=== PATIENT | male | born 1935 | race Caucasian/White ===

== ENCOUNTER 2016-12-05 11:29 | Observation (INO) | payer OTHER, MEDICARE ==
[2016-12-05] MEDS ORDERED: DIAZEPAM 5 MG TAB PO ONE (11:34)
[2016-12-05] MEDS ORDERED: FAMOTIDINE 20 MG TAB PO ONE (11:34)
[2016-12-05] MEDS ORDERED: diphenhydrAMINE 25 MG CAP PO ONE (11:34)
[2016-12-05] MEDS ORDERED: NS 1,000 ML IV ONE (11:34)
[2016-12-05] MEDS ORDERED: ASPIRIN EC 325 MG TAB PO ONE (11:34)
--- NOTE | 2016-12-05 11:59 | CPEKG ---
Heart Rate: 44 RR Interval: 1364 P-R Interval: 280 QRSD Interval: 162 QT Interval: 500 QTC Interval: 428 P [place]: -80 QRS [place]: -108 T Wave [place]: -11 EKG Severity - ABNORMAL ECG - EKG Impression: SINUS OR ECTOPIC ATRIAL BRADYCARDIA EKG Impression: FIRST DEGREE AV BLOCK EKG Impression: RIGHT BUNDLE BRANCH BLOCK Electronically Signed By: Niranjan Mccarthy 05-Dec-2016 14:41:03
[2016-12-05] MEDS ORDERED: LIDOCAINE 1% 300 MG/30 ML SDV ONE (12:03)
[2016-12-05] MEDS ORDERED: fentaNYL 100 MCG/2 ML INJ ONE (12:03)
[2016-12-05] MEDS ORDERED: IOPAMIDOL (ISOVUE-370) 150 ML BTL IV ONE (12:04)
[2016-12-05] MEDS ORDERED: MIDAZOLAM 2 MG/2 ML VIAL ONE (12:04)
[2016-12-05 12:11] LABS: % IMMATURE GRANULYOCYTES 0.4 % (0.0-1.1); ABSOLUTE IMMATURE GRANULOCYTES 0.04 10^3/uL (0.00-0.10); ADD DIFF? NO; ADD MORPH? NO; ADD SCAN? NO; ATYPICAL LYMPHOCYTE FLAG 10 (0-99); FRAGMENT RBC FLAG 0 (0-99); HEMATOCRIT 46.2 % (40.0-51.0); HEMOGLOBIN 15.6 g/dL (13.7-17.5); LEFT SHIFT FLG 0 (0-99); LIPEMIA HEMOLYSIS FLAG 90 (0-99); MEAN CELL HEMOGLOBIN CONCENTR. 33.8 g/dL (32.4-36.7); MEAN CELL VOLUME 97.7 fL (81.5-99.8); MEAN PLATELET VOLUME 9.9 fL (8.7-11.7); PLATELET CLUMPS FLAG 10 (0-99); PLATELET COUNT 191 10^3/uL (150-400); RED BLOOD CELL COUNT 4.73 10^6/uL (4.40-6.38); RED CELL DISTRIBUTION WIDTH 13.2 % (11.5-15.2)
[2016-12-05 12:23] LABS: INR 1.02 (0.83-1.16); PROTIME(PATIENT) 13.3 SEC (12.0-15.0)
[2016-12-05 12:41] LABS: ANION GAP 12 mEq/L (8-16); CALCIUM 9.7 mg/dL (8.5-10.4); CARBON DIOXIDE 23 mEq/l (22-31); CHLORIDE 107 mEq/L (97-110); CHOLESTEROL 110 mg/dL (140-220); CHOLESTEROL/HDL RATIO 2.39 RATIO (1.00-4.97); CREATININE 0.8 mg/dL (0.7-1.3); GLOMERULAR FILTRATION RATE > 60; GLUCOSE 134 mg/dL (70-100); HIGH DENSITY LIPOPROTEIN 46 mg/dL (40-65); LDL/HDL RATIO 0.87 RATIO (1.00-3.64); LOW DENSITY LIPOPROTEIN 40 mg/dL (80-100); MAGNESIUM 1.9 mg/dL (1.6-2.3); NON-HIGH DENSITY LIPOPROTEIN 64 mg/dL (90-129); POTASSIUM 4.8 mEq/L (3.5-5.2); SODIUM 142 mEq/L (134-144); TRIGLYCERIDE 121 mg/dL (40-150); VERY LOW DENSITY LIPOPROTEINS 24 mg/dL (8-25)
[2016-12-05] MEDS ORDERED: BIVALIRUDIN 250 MG/5 ML VIAL IV ONE ×2 (14:29)
[2016-12-05] MEDS ORDERED: CLOPIDOGREL BISULFATE 75 MG TAB ONE (14:52)
[2016-12-05] MEDS ORDERED: NITROGLYCERIN 0.4 MG BTL SL PRN (15:09)
[2016-12-05] MEDS ORDERED: TEMAZEPAM 15 MG CAP PO PRN (15:09)
[2016-12-05] MEDS ORDERED: CLOPIDOGREL BISULFATE 75 MG TAB PO ONE (15:09)
[2016-12-05] MEDS ORDERED: ACETAMINOPHEN 325 MG TAB PO PRN (15:09)
[2016-12-05] MEDS ORDERED: ATROPINE SULFATE 1 MG/10 ML SYR IVP PRN (15:09)
[2016-12-05] MEDS ORDERED: HYDROCODONE/APAP 5/325 TAB PO PRN (15:09)
[2016-12-05] MEDS ORDERED: ONDANSETRON DISINTEGRATING 4 MG TAB PO PRN (15:09)
[2016-12-05] MEDS ORDERED: ONDANSETRON 4 MG/2 ML VIAL IVP PRN (15:09)
[2016-12-05] MEDS ORDERED: NS 1,000 ML IV SCH (15:15)
--- NOTE | 2016-12-05 15:18 | CPEKG ---
Heart Rate: 38 RR Interval: 1579 QRSD Interval: 166 QT Interval: 496 QTC Interval: 395 QRS [place]: -96 T Wave [place]: 29 EKG Severity - ABNORMAL ECG - EKG Impression: JUNCTIONAL ESCAPE RHYTHM EKG Impression: RIGHT BUNDLE BRANCH BLOCK Electronically Signed By: Mihai Abbott 05-Dec-2016 21:01:58
--- NOTE | 2016-12-05 17:42 | CPIP ---
[f rep st] INVASIVE CARDIAC PROCEDURE DATE OF PROCEDURE: 12/05/2016 PROCEDURE: Cardiac catheterization. INDICATION FOR PROCEDURE: The patient with high risk findings on pharmacologic nuclear stress test with evidence of anterior inferior ischemia, as well as transient ischemic dilatation in the setting of complaints of dyspnea on exertion coupled with multiple coronary artery disease risk factors, including previous PCI to the LAD with residual RCA disease on left heart catheterization in 2012, as well as ongoing smoking. DESCRIPTION OF PROCEDURE: After informed consent was obtained the patient was brought to the cardiac catheterization lab where he was prepped and draped in sterile fashion. Using 1% lidocaine, the right groin was anesthetized. Using modified Seldinger technique, a 6-Uzbek catheter was placed in the right common femoral artery without complications. A JL5 catheter was used to cannulate the left main. Images of the left coronary anatomy were obtained in multiple projections. JL5 catheter was exchanged over a guidewire for a JR4 catheter. JR4 catheter was used to cannulate the right coronary artery. Images were obtained in multiple projections. The JR4 catheter was exchanged over a guidewire for angled pigtail catheter. Angled pigtail catheter was used to cross the aortic valve. LVEDP was assessed and a left ventriculogram was performed. Aortic valve gradient was also assessed on pull-back. Angled pigtail catheter was removed over a guidewire without complications. FINDINGS: 1. Left main is normal size and caliber and bifurcates into left anterior descending and left circumflex coronary artery. Left main is of normal size and normal caliber. There is no evidence of coronary disease within the left main. 2. Left anterior descending demonstrates emgi-rn-tualiojj luminal irregularities in the proximal portion of the LAD. He does have a previous proximal LAD stent. At the level of first large diagonal branch which is widely patent. There are some mild luminal irregularities within the distal LAD. 3. Circumflex vessel demonstrates a chronic total occlusion in the mid segment of the circumflex vessel. There was a large 1st obtuse marginal branch vessel with evidence of a 90% percent mid stenosis in the obtuse marginal branch. 4. Right coronary artery is a large caliber dominant vessel. There is 30-40% stenosis in the proximal portion of the RCA. There is mild luminal irregularities within the distal segments within the PDA and PLV branch. No limiting stenosis. 5. Hemodynamics: LVEF 60-65%. LVEDP 12 mmHg. Aortic valve gradient: None. CONCLUSION: 1. Severe single vessel disease in large caliber 1st obtuse marginal branch. 2. Moderate luminal irregularities within the LAD and right coronary artery. 3. Patent stent to the proximal LAD at the level of first diagonal branch. I have reviewed these films with my interventional colleague, Dr. Dakota Mitchell. We will plan for percutaneous coronary intervention to the obtuse marginal branch. /[id number]/MODL MTDD
[2016-12-05] MEDS: NICOTINE 21 MG/24 HR PATCH TD SCH (18:04)
[2016-12-05] MEDS ORDERED: amLODIPine BESYLATE 5 MG TAB PO SCH (21:00)
[2016-12-05] MEDS ORDERED: ATORVASTATIN CALCIUM 20 MG TAB PO SCH (21:00)
[2016-12-05] MEDS ORDERED: NON-FORMULARY NEW DRUG (Simvastatin [Simvastatin] 40 MG) PO SCH (21:00)
[2016-12-05] MEDS ORDERED: LISINOPRIL 40 MG TAB PO SCH (21:00)
[2016-12-05] MEDS: GABAPENTIN 100 MG CAP PO SCH (21:26)
--- NOTE | 2016-12-06 01:23 | CPIP ---
[f rep st] INVASIVE CARDIAC PROCEDURE DATE OF PROCEDURE: 12/05/2016 PROCEDURE PERFORMED: Percutaneous coronary intervention of the principal obtuse marginal branch of the circumflex. INDICATIONS FOR PROCEDURE: The patient is an 81-year-old male under the care of Dr. Damien Vang. He has upcoming cataract surgery scheduled. Because of his history of coronary disease with previous PCI of the LAD, a cardiac clearance was requested by his surgeon. A pharmacologic nuclear stress te st performed at [facility] suggested worsening inferolateral ischemia compared to a nucl ear stress test performed 18 months ago. In addition, the patient reported recently increased issue s of dyspnea on exertion. Diagnostic cardiac catheterization was performed today by Dr. Damien Vang. It demonstrates a patent site of prior stent placement in the left anterior descending, noncritical disease of the RCA, total occlusion of the distal portion of the A-V groove circumflex, and a focal 75% lesion in the mid to distal portion of the principal obtuse marginal branch. Therefore, it was requested that I perform PCI of this lesion. DETAILS OF PROCEDURE: The patient received intravenous Angiomax. A 6-Mauritian CLS 4 guiding catheter was advanced to the left main. An intuition guidewire was advanced to the distal portion of the pr incipal obtuse marginal branch. Predilatation of the target lesion was performed using a 2.0 x 8 mm Emerge balloon. A 2.75 x 12 mm Synergy stent was then advanced into position and was deployed at h igh pressure. Final angiograms demonstrated 0% residual stenosis and DIYA-3 flow. COMPLICATIONS: None. CONCLUSION: Successful percutaneous coronary intervention of the principal obtuse marginal branch o f the circumflex using a single drug-coated stent. /[id number]/MODL
[2016-12-06 03:40] VITALS: O2SAT 88
[2016-12-06 05:06] LABS: % IMMATURE GRANULYOCYTES 0.9 % (0.0-1.1); ABSOLUTE IMMATURE GRANULOCYTES 0.08 10^3/uL (0.00-0.10); ADD DIFF? NO; ADD MORPH? NO; ADD SCAN? NO; ATYPICAL LYMPHOCYTE FLAG 10 (0-99); FRAGMENT RBC FLAG 0 (0-99); HEMATOCRIT 42.5 % (40.0-51.0); HEMOGLOBIN 14.3 g/dL (13.7-17.5); LEFT SHIFT FLG 0 (0-99); LIPEMIA HEMOLYSIS FLAG 80 (0-99); MEAN CELL HEMOGLOBIN 32.9 pg (27.9-34.1); MEAN CELL HEMOGLOBIN CONCENTR. 33.6 g/dL (32.4-36.7); MEAN CELL VOLUME 97.7 fL (81.5-99.8); MEAN PLATELET VOLUME 10.8 fL (8.7-11.7); PLATELET CLUMPS FLAG 0 (0-99); PLATELET COUNT 181 10^3/uL (150-400); RED BLOOD CELL COUNT 4.35 10^6/uL (4.40-6.38); RED CELL DISTRIBUTION WIDTH 13.3 % (11.5-15.2)
[2016-12-06 05:25] LABS: ALBUMIN 3.3 g/dL (3.5-5.0); ANION GAP 9 mEq/L (8-16); ASPARTATE AMINOTRANSFERASE 21 IU/L (17-59); BILIRUBIN,TOTAL 0.9 mg/dL (0.1-1.4); CALCIUM 9.3 mg/dL (8.5-10.4); CARBON DIOXIDE 24 mEq/l (22-31); CHLORIDE 107 mEq/L (97-110); CREATININE 0.7 mg/dL (0.7-1.3); GLOMERULAR FILTRATION RATE > 60; GLUCOSE 119 mg/dL (70-100); LACTATE DEHYDROGENASE 522 IU/L (313-618); MAGNESIUM 1.8 mg/dL (1.6-2.3); POTASSIUM 4.5 mEq/L (3.5-5.2); SODIUM 140 mEq/L (134-144)
[2016-12-06 07:14] VITALS: BP 151/78; PULSE 40; RESP 7; TEMP 98.3
--- NOTE | 2016-12-06 08:59 | CPEKG ---
Heart Rate: 41 RR Interval: 1463 P-R Interval: 324 QRSD Interval: 160 QT Interval: 508 QTC Interval: 420 P [place]: -50 QRS [place]: -95 T Wave [place]: -30 EKG Severity - ABNORMAL ECG - EKG Impression: SINUS OR ECTOPIC ATRIAL BRADYCARDIA EKG Impression: FIRST DEGREE AV BLOCK EKG Impression: RIGHT BUNDLE BRANCH BLOCK Electronically Signed By: Niranjan Mccarthy 06-Dec-2016 11:30:04
[2016-12-06] MEDS ORDERED: ASPIRIN EC 325 MG TAB PO SCH (09:00)
[2016-12-06] MEDS ORDERED: CLOPIDOGREL BISULFATE 75 MG TAB PO SCH (09:00)
[2016-12-06] MEDS: NICOTINE 21 MG/24 HR PATCH TD SCH (09:17)
[2016-12-06] MEDS: GABAPENTIN 100 MG CAP PO SCH (09:17)
--- NOTE | 2016-12-06 17:15 | GDS ---
[f rep st] DISCHARGE SUMMARY REASON FOR ADMISSION: Coronary artery disease. HOSPITAL COURSE: Please refer to Dr. Vang's recent office note which serves as the admission histor y and physical for this hospital encounter. Briefly, the patient is an 81-year-old male with histor y of coronary artery disease and prior PCI of the LAD several years ago. He has cataract surgery sc heduled in the near future. Because of his cardiac history, a cardiac clearance was requested. A p harmacologic nuclear stress test was performed at [facility] and demonstrated an increas ed degree of inferolateral ischemia compared to a stress test from approximately 18 months ago. On that basis, he was scheduled for diagnostic cardiac catheterization, which was performed by Dr. Vang yesterday. His angiogram demonstrated that his prior LAD stent site was patent. He had non flow-l imiting CAD in the RCA. The circumflex gives off a large principal obtuse marginal branch and then continues as a relatively smaller vessel in the A-V groove. In the [id number]-bk-[id number] portion of the A-V groove circumflex there was a total occlusion. There was a focal stenosis of 70% to 80% in the mid portion of the principal obtuse marginal branch. I was asked to perform PCI of this lesion. The bebe bauer had an uneventful procedure which entailed placement of a 2.75 x 12 mm Synergy drug coated jennifer nt. This morning he is stable. He has not had any arrhythmias. He has not had any symptoms sugges tive of angina. Telemetry does demonstrate moderate bradycardia. He is not on any cardiac medicati ons which would be exacerbating his heart rate issues. This can be monitored as an outpatient. His cholesterol panel demonstrated a total cholesterol of 110 with HDL 46, LDL 40, and triglycerides 12 1. He is stable for discharge. RECOMMENDATIONS AND DISPOSITION: The patient is discharged in stable condition. I had a discussion with the patient and his regarding his procedure yesterday. We also reviewed secondary preven tion, which consists of the right medications, heart-healthy behaviors, and regular followup. Smoki ng cessation was strongly encouraged. He will continue his usual home medicines, which include aspi rin, lisinopril, amlodipine, and simvastatin. Clopidogrel 75 mg daily will be added for the next 12 months. He has a followup appointment with Dr. Vang on December 13. DISCHARGE DIAGNOSES: 1. Coronary artery disease. 2. Status post percutaneous coronary intervention of the principal obtuse marginal branch. 3. Hypertension. 4. Hyperlipidemia. /[id number]/MODL
== END 2016-12-06 10:54 | disposition home or self-care (01) ==
LOC: FCATH 11:29 → F2W 15:09
PROVIDERS: ADMIT Internal Medicine Interventional Cardiology; ATTEND Internal Medicine Interventional Cardiology
PROC: 4A023N7 Measurement of Cardiac Sampling and Pressure, Left Heart, Percutaneous Approach (ICD-10-PCS; principal; 2016-12-05)
PROC: B2151ZZ Fluoroscopy of Left Heart using Low Osmolar Contrast (ICD-10-PCS; principal; 2016-12-05)
PROC: 027034Z Dilation of Coronary Artery, One Artery with Drug-eluting Intraluminal Device, Percutaneous Approach (ICD-10-PCS; principal; 2016-12-05)
DX: I25.10 Atherosclerotic heart disease of native coronary artery without angina pectoris (principal); Z95.5 Presence of coronary angioplasty implant and graft; I10 Essential (primary) hypertension; E78.5 Hyperlipidemia, unspecified; I45.10 Unspecified right bundle-branch block; I44.0 Atrioventricular block, first degree
CPT/HCPCS: 93005; 93458; C1725; C1760; C1769; C1874; C1887; C9600; J0583; J1644; J2250; J3010; Q9967